=== PATIENT | female | born 1980 | race Caucasian/White ===

== ENCOUNTER 2019-11-01 20:57 | Emergency (ER) | payer OTHER ==
[~2019-11-01] VITALS: Ht 165.1 cm; Wt 59.0 kg
[2019-11-01 21:34] VITALS: BP 135/98
== END 2019-11-02 03:57 | disposition left against medical advice (07) ==
LOC: ER 21:04
DX: M79.89 Other specified soft tissue disorders (principal); Z53.21 Procedure and treatment not carried out due to patient leaving prior to being seen by health care provider
CPT/HCPCS: 73200

== ENCOUNTER 2019-11-02 07:38 | Emergency (ER) | payer OTHER ==
[~2019-11-02] VITALS: Ht 165.1 cm; Wt 59.0 kg
[2019-11-02 07:55] VITALS: BP 151/95
[2019-11-02] MEDS ORDERED: LIDOCAINE 1% HCL (LOCAL ANESTH.) INJ 20ML MDV IJ ONE (09:00)
[2019-11-02] MEDS ORDERED: CLINDAMYCIN 600 MG/4 ML VL IM ONE (09:30)
== END 2019-11-02 09:57 | disposition home or self-care (01) ==
LOC: ER 07:40
DX: L02.512 Cutaneous abscess of left hand (principal); F17.210 Nicotine dependence, cigarettes, uncomplicated; F12.10 Cannabis abuse, uncomplicated; F15.10 Other stimulant abuse, uncomplicated; Z88.1 Allergy status to other antibiotic agents
CPT/HCPCS: 10060; 87077; 87186; 87205; 96372

== ENCOUNTER 2019-11-04 05:11 | Emergency (ER) | payer OTHER ==
[~2019-11-04] VITALS: Ht 165.1 cm; Wt 59.0 kg
[2019-11-04] MEDS ORDERED: CLINDAMYCIN 600MG IV 50 ML IV ONE (07:45)
[2019-11-04 08:30] VITALS: BP 121/87
== END 2019-11-04 09:02 | disposition home or self-care (01) ==
LOC: ER 05:11
DX: L02.414 Cutaneous abscess of left upper limb (principal); Z88.8 Allergy status to other drugs, medicaments and biological substances; Z91.041 Radiographic dye allergy status
CPT/HCPCS: 96365; 99285; J3490